=== PATIENT | female | born 1990 | race Caucasian/White ===

== ENCOUNTER 2017-12-29 15:00 | Emergency (ER) | payer BC ==
[2017-12-29 15:48] VITALS: BP 141/77
--- NOTE | 2017-12-29 17:35 | UC ---
UC General HPI - HPI Summary HPI Summary: pt c/o urinary urgency with some mild burning plus frequency for about 4 days. she has self tx with azo. she admits to some bladder cramping. pt has had a uti before with similar s/s's. denies vaginal d/c and risk/concern for std. is on BC and denies risk for -declined testing. - History of Current Complaint Chief Complaint: UCGU Stated Complaint: URINARY COMPLAINT Time Seen by Provider: 12/29/17 17:22 Hx Obtained From: Patient Hx Last Menstrual Period: 12/04/17 Onset/Duration: Gradual Onset Timing: Constant Pain Intensity: 2 Aggravating: nothing Alleviating: nothing Associated Signs & Symptoms: Positive: Dysuria. Negative: Abdominal Pain, Dizziness, Fever, Nausea, Vomiting - Allergy/Home Medications Allergies/Adverse Reactions: Allergies Allergy/AdvReac Type Severity Reaction Status Date / Time No Known Allergies Allergy Verified 12/29/17 15:42 Home Medications: Home Medications Norgestimate-Eth Estradiol(NF) [Ortho Tri-Cyclen (NF)] 1 tab DAILY 12/29/17 [ History Confirmed 12/29/17] PMH/Surg Hx/FS Hx/Imm Hx - Additional Past Medical History Additional PMH: uti - Surgical History Surgical History: None - Family History Known Family History: Positive: None - Social History Lives: With Family Alcohol Use: Occasionally Substance Use Type: None Smoking Status (MU): Never Smoked Tobacco - Immunization History Vaccination Up to Date: Yes Review of Systems Constitutional: Negative Skin: Negative Eyes: Negative ENT: Negative Respiratory: Negative Cardiovascular: Negative Gastrointestinal: Negative Genitourinary: Dysuria, Frequency, Urgency Motor: Negative Neurovascular: Negative Musculoskeletal: Negative Neurological: Negative Psychological: Negative Is Patient Immunocompromised?: No All Other Systems Reviewed And Are Negative: Yes Physical Exam Triage Information Reviewed: Yes Appearance: Well-Appearing Vital Signs: Initial Vital Signs Temp 98.6 F 12/29/17 15:43 Pulse 86 12/29/17 15:43 Resp 16 12/29/17 15:43 BP 141/77 12/29/17 15:43 Pulse Ox 100 12/29/17 15:43 Vital Signs Reviewed: Yes Eyes: Positive: Conjunctiva Clear ENT: Positive: Normal ENT inspection Neck: Positive: Supple, Nontender, No Lymphadenopathy Respiratory: Positive: Lungs clear, Normal breath sounds Cardiovascular: Positive: RRR, No Murmur Abdomen Description: Positive: Nontender, No Organomegaly, Soft. Negative: Bruit, CVA Tenderness (R), CVA Tenderness (L), Distended, Guarding Bowel Sounds: Positive: Present Musculoskeletal: Positive: ROM Intact Neurological: Positive: Alert Psychological: Positive: Age Appropriate Behavior Skin Exam: Normal Diagnostics - Laboratory Diagnostic Studies Completed/Ordered: urine culture is pending Course/Dx - Course Course Of Treatment: no u/a, pt taking AZO. culture is pending. non toxic. no acute abdomen. will tx for presumptive uti. pt of Dr Weinstein practice in past thus will refer there. no hx htn repeat VN=511/79. - Differential Dx - Multi-Symptom Provider Diagnoses: dysuria Discharge - Sign-Out/Discharge Documenting (check all that apply): Discharge/Admit/Transfer - Discharge Plan Condition: Stable Disposition: HOME Prescriptions: Nitrofurantoin Monohyd/M-Cryst [Macrobid 100 mg Capsule] 100 mg PO BID #10 cap Patient Education Materials: Dysuria (ED) Referrals: Danyel Looney MD [Medical Doctor] - - Billing Disposition and Condition Condition: STABLE Disposition: HOME
[2017-12-29] MEDS ORDERED: Nitrofurantoin Macrocrystals* 50 MG CAP PO ONE (17:42)
== END 2017-12-29 17:48 | disposition home or self-care (01) ==
LOC: UCCORT 15:00
DX: R30.0 Dysuria (principal)
CPT/HCPCS: 87077; 87086; 87186; 99202; A9270-GY; G0463

== ENCOUNTER 2018-11-15 17:59 | Emergency (ER) | payer BC ==
[2018-11-15 19:04] VITALS: BP 103/60
[2018-11-15] MEDS ORDERED: Erythromycin OPTH OINT* APPLIC OINT RIGHT EYE ONE ×2 (19:20→19:22)
--- NOTE | 2018-11-15 19:29 | UC ---
Eye Complaint HPI - HPI Summary HPI Summary: Right eye itching irritation and redness onset yesterday at work; pt was cleaning chemo IV law with bleach wipes before sx started, pt noticed spot on sclera near iris today - History of Current Complaint Chief Complaint: UCEye Stated Complaint: RIGHT EYE COMPLAINT Time Seen by Provider: 11/15/18 19:08 Hx Obtained From: Patient Hx Last Menstrual Period: 11/05/18 ?: No Onset/Duration: Sudden Onset, Lasting Days Timing: Constant Severity Initially: Mild Severity Currently: Mild Pain Intensity: 0 Location of Injury: Sclera Character: Foreign Body Sensation - Allergies/Home Medications Allergies/Adverse Reactions: Allergies Allergy/AdvReac Type Severity Reaction Status Date / Time No Known Allergies Allergy Verified 11/15/18 18:52 Home Medications: Home Medications Aspirin/Acetaminophen/Caffeine [Excedrin Migraine Caplet] 1 each PO ONCE PRN 01/28 [History Confirmed 11/15/18] Otc Eye Lubricant /Astringent 1 drop RIGHT EYE TID 11/15/18 [History Confirmed 11/15/18] PMH/Surg Hx/FS Hx/Imm Hx Previously Healthy: Yes - Surgical History Surgical History: Yes Surgery Procedure, Year, and Place: wisdom teeth - Family History Known Family History: Positive: None Negative: Cardiac Disease, Hypertension - Social History Alcohol Use: Occasionally Substance Use Type: None Smoking Status (MU): Never Smoked Tobacco - Immunization History Most Recent Tetanus Shot: About 10 years Vaccination Up to Date: Yes Review of Systems All Other Systems Reviewed And Are Negative: Yes Constitutional: Positive: Negative Skin: Positive: Negative Eyes: Positive: Eye Redness ENT: Positive: Negative Respiratory: Positive: Negative Cardiovascular: Positive: Negative Gastrointestinal: Positive: Negative Genitourinary: Positive: Negative Motor: Positive: Negative Neurovascular: Positive: Negative Musculoskeletal: Positive: Negative Neurological: Positive: Negative Psychological: Positive: Negative Is Patient Immunocompromised?: No Physical Exam Triage Information Reviewed: Yes Appearance: Well-Appearing, Well-Nourished, Pain Distress Vital Signs: Initial Vital Signs Temp 98.7 F 11/15/18 18:57 Pulse 93 11/15/18 18:57 Resp 18 11/15/18 18:57 BP 103/60 11/15/18 18:57 Pulse Ox 98 11/15/18 18:57 Vital Signs Reviewed: Yes Eyes: Positive: Other: - red irritation noted in the medial aspect of scleara. PERRLA, no FB noted, no visual changes ENT Exam: Normal ENT: Positive: Pharyngeal erythema, TMs normal Dental Exam: Normal Neck exam: Normal Respiratory Exam: Normal Respiratory: Positive: Chest non-tender, Lungs clear, Normal breath sounds Cardiovascular Exam: Normal Cardiovascular: Positive: RRR, No Murmur, Pulses Normal Abdominal Exam: Normal Abdomen Description: Positive: Nontender, No Organomegaly, Soft Bowel Sounds: Positive: Present Musculoskeletal Exam: Normal Neurological Exam: Normal Psychological Exam: Normal Skin Exam: Normal Eye Complaint Course/Dx - Course Course Of Treatment: hx obtained, exam performed ,meds reviewed, eye ph 7.0, mild irritation note, erythromycin cream given and recommend follow up if not improving - Differential Dx/Diagnosis Differential Diagnosis/HQI/PQRI: Conjunctivitis, Penetrating Injury, Periorbital Cellulitis, Orbital Cellulitis Provider Diagnosis: Corneal irritation of right eye Discharge - Sign-Out/Discharge Documenting (check all that apply): Patient Departure All imaging exams completed and their final reports reviewed: No Studies - Discharge Plan Condition: Stable Disposition: HOME Patient Education Materials: Corneal Abrasion (ED) Referrals: No Primary Care Phys,NOPCP [Primary Care Provider] - Additional Instructions: 1. use the cream as prescribed 2. If not improving in the next 2 days follow up with opthamology - Billing Disposition and Condition Condition: STABLE Disposition: Home
== END 2018-11-15 19:41 | disposition home or self-care (01) ==
LOC: UCCORT 17:59
DX: H57.89 Other specified disorders of eye and adnexa (principal); Z79.82 Long term (current) use of aspirin
CPT/HCPCS: 83986; 99212; A9270-GY; G0463

== ENCOUNTER 2019-09-25 20:54 | Emergency (ER) | payer BC ==
[2019-09-25 21:10] VITALS: BP 147/86
--- NOTE | 2019-09-25 21:12 | UC ---
Complaint Female HPI - HPI Summary HPI Summary: The patient is a 28 yo asymptomatic female that present here to have a condom removed from her vagina Has been in about 24 hours She denies any concerns re She declines any STD testing - History Of Current Complaint Chief Complaint: UCForeignBody Stated Complaint: PERSONAL Hx Obtained From: Patient Hx Last Menstrual Period: 09/09/19 Onset/Duration: Sudden Onset, Lasting Hours Timing: Constant Severity Currently: None Pain Intensity: 0 Associated Signs And Symptoms: Positive: Retained Foregin Body (Specify) - condom - Allergies/Home Medications Allergies/Adverse Reactions: Allergies Allergy/AdvReac Type Severity Reaction Status Date / Time No Known Allergies Allergy Verified 09/25/19 21:09 PMH/Surg Hx/FS Hx/Imm Hx Previously Healthy: Yes - Surgical History Surgical History: Yes Surgery Procedure, Year, and Place: wisdom teeth - Family History Known Family History: Positive: None, Non-Contributory Negative: Cardiac Disease, Hypertension - Social History Alcohol Use: Occasionally Substance Use Type: None Smoking Status (MU): Never Smoked Tobacco - Immunization History Most Recent Tetanus Shot: About 10 years Vaccination Up to Date: Yes Review of Systems All Other Systems Reviewed And Are Negative: Yes Constitutional: Positive: Negative Skin: Positive: Negative Eyes: Positive: Negative ENT: Positive: Negative Respiratory: Positive: Negative Cardiovascular: Positive: Negative Gastrointestinal: Positive: Negative Genitourinary: Positive: Other - worries re retained condom Motor: Positive: Negative Neurovascular: Positive: Negative Musculoskeletal: Positive: Negative Neurological/Mental Status: Positive: Negative Physical Exam Triage Information Reviewed: Yes Appearance: Well-Appearing, No Pain Distress, Well-Nourished Vital Signs: Initial Vital Signs Temp 98.5 F 09/25/19 21:05 Pulse 103 09/25/19 21:05 Resp 16 09/25/19 21:05 BP 147/86 09/25/19 21:05 Pulse Ox 100 09/25/19 21:05 Vital Signs Reviewed: Yes Eyes: Positive: Conjunctiva Clear ENT: Positive: Hearing grossly normal. Negative: Nasal congestion, Nasal drainage, Trismus, Hoarse voice Neck: Positive: Supple, Nontender, No Lymphadenopathy Respiratory: Positive: Lungs clear, Normal breath sounds, No respiratory distress, No accessory muscle use. Negative: Decreased breath sounds, Accessory muscle use Cardiovascular: Positive: RRR, No Murmur Abdomen Description: Positive: Nontender, No Organomegaly Pelvic Exam: Positive: External Exam Normal, Other - condom noted in vagina and removed with ringed forceps Musculoskeletal: Positive: ROM Intact, No Edema Neurological: Positive: Alert Psychological Exam: Normal Skin Exam: Normal Complaint Female Dx - Differential Dx/Diagnosis Provider Diagnosis: Retained foreign body of vagina Discharge ED - Sign-Out/Discharge Documenting (check all that apply): Patient Departure All imaging exams completed and their final reports reviewed: No Studies - Discharge Plan Condition: Stable Disposition: HOME Referrals: No Primary Care Phys,NOPCP [Primary Care Provider] - Additional Instructions: A retained condom was removed I don't anticipate any problems call for any questions return for any problems - Billing Disposition and Condition Condition: STABLE Disposition: Home
== END 2019-09-25 21:25 | disposition home or self-care (01) ==
LOC: UCCORT 20:54
DX: T19.2XXA Foreign body in vulva and vagina, initial encounter (principal); T83.39XA Other mechanical complication of intrauterine contraceptive device, initial encounter; X58.XXXA Exposure to other specified factors, initial encounter; Y92.9 Unspecified place or not applicable
CPT/HCPCS: 99212; G0463